=== PATIENT | male | born 1985 | race Caucasian/White ===

== ENCOUNTER 2022-03-22 13:41 | Inpatient (IN) | payer BC ==
[2022-03-22 15:00] VITALS: BMI 20.8
[2022-03-22] MEDS ORDERED: P-EPHED 60MG/TRIPROLIDI 2.5MG TABLET PO PRN (18:56)
[2022-03-22] MEDS ORDERED: MAG HYDROX/AL HYDROX/SIMETH 30 ML UNIT-DOSE CUP PO PRN (18:56)
[2022-03-22] MEDS ORDERED: MAGNESIUM CITRATE 300 ML BOTTLE PO PRN (18:56)
[2022-03-22] MEDS ORDERED: LOPERAMIDE HCL 2 MG CAPSULE PO PRN (18:56)
[2022-03-22] MEDS ORDERED: guaiFENesin 200 MG/10 ML 10 ML UNIT-DOSE CUPS PO PRN (18:56)
[2022-03-22] MEDS ORDERED: MAGNESIUM HYDROX 2400MG/30ML ORAL SUSPENSION 30 ML CUP PO PRN (18:56)
[2022-03-22] MEDS ORDERED: diazePAM 5 MG TABLET PO PRN (19:00)
[2022-03-23] MEDS ORDERED: TUBERCULIN PPD 5 TU/0.1ML VIAL ID ONE (00:59)
[2022-03-23] MEDS: THIAMINE HCL 100 MG TABLET (FP) PO SCH ×2 (01:04→21:10)
[2022-03-23] MEDS: hydrOXYzine PAMOATE 25 MG CAPSULE (FP) PO SCH ×6 (01:04→21:10)
[2022-03-23] MEDS: MELATONIN 5 MG TABLETS PO SCH ×2 (01:05→21:10)
[2022-03-23] MEDS: BUPRENORPHINE/NALOXONE 4 MG/1 MG FILM PACKET SL SCH ×4 (01:05→21:10)
[2022-03-23] MEDS: PRENATAL VITAMINS W/ FOLIC ACID TABLET (FP) PO SCH (10:59)
[2022-03-23 11:02] LABS: HEMATOCRIT 31.9 % (35.4-49); HEMOGLOBIN 11.2 GM/dL (11.7-16.9); MCHC 35.1 g/dl (32.0-35.9); MEAN CELL VOLUME 88.3 fl (80-96); MEAN PLT VOLUME 8.6 fl (7.5-11.1); PLATELET COUNT 206 10^3/uL (134-434); RBC 3.61 M/mm3 (4.00-5.60); RDW 12.9 % (11.9-15.9); WHITE BLOOD COUNT 4.5 K/mm3 (4.0-10.0)
[2022-03-23 11:22] LABS: ALBUMIN 3.2 g/dl (3.4-5.0)
[2022-03-23 11:23] LABS: CALCIUM 8.5 mg/dL (8.5-10.1)
[2022-03-23 11:23] LABS: PH,URINE 5.5 (5.0-8.0); URINE APPEARANCE TURBID; URINE BILIRUBIN NEGATIVE (NEGATIVE); URINE COLOR YELLOW; URINE GLUCOSE (UA) NEGATIVE (NEGATIVE); URINE KETONE NEGATIVE (NEGATIVE); URINE LEUK ESTERASE NEGATIVE (NEGATIVE); URINE NITRITE NEGATIVE (NEGATIVE); URINE PROTEIN NEGATIVE (NEGATIVE); URINE UROBILINOGEN 0.2 mg/dL (0.2-1.0)
[2022-03-23 11:24] LABS: BLOOD UREA NITROGEN 14.6 mg/dL (7-18)
[2022-03-23 11:25] LABS: CREATININE 0.9 mg/dL (0.55-1.3)
[2022-03-23 11:27] LABS: BILIRUBIN,TOTAL 0.5 mg/dL (0.2-1); TOT PROT 5.8 g/dl (6.4-8.2)
[2022-03-23 11:34] LABS: SYPHILIS W/ RPR CONF NON-REACTIVE (NONREACTIVE)
[2022-03-23 12:06] LABS: HIV INTERPRETATION NEGATIVE (NEGATIVE)
[2022-03-23] MEDS ORDERED: cloNIDine HCL 0.1 MG TABLET PO PRN ×2 (12:39→13:11)
[2022-03-23] MEDS ORDERED: BUPRENORPHINE/NALOXONE 8 MG/2 MG FILM PACKET SL SCH (14:00)
[2022-03-23] MEDS: LORazepam 2 MG TABLET PO SCH ×2 (14:59→21:10)
[2022-03-24] MEDS: hydrOXYzine PAMOATE 25 MG CAPSULE (FP) PO SCH (06:27)
[2022-03-24] MEDS: LORazepam 2 MG TABLET PO SCH (06:27)
[2022-03-24] MEDS: BUPRENORPHINE/NALOXONE 4 MG/1 MG FILM PACKET SL SCH (07:35)
[2022-03-24] MEDS ORDERED: cloNIDine HCL 0.1 MG TABLET PO PRN (09:53)
[2022-03-24] MEDS ORDERED: BUPRENORPHINE/NALOXONE 8 MG/2 MG FILM PACKET SL SCH (11:00)
[2022-03-24] MEDS: PRENATAL VITAMINS W/ FOLIC ACID TABLET (FP) PO SCH (11:41)
[2022-03-24] MEDS: hydrOXYzine PAMOATE 25 MG CAPSULE (FP) PO PRN ×2 (15:41→20:33)
[2022-03-24] MEDS: NICOTINE 10 MG CARTRIDGE (INHALER) IH PRN ×2 (15:41→21:23)
[2022-03-24] MEDS: BUPRENORPHINE/NALOXONE 8 MG/2 MG FILM PACKET SL SCH (20:34)
[2022-03-24] MEDS: IBUPROFEN 400 MG TABLET (FP) PO PRN (21:24)
[2022-03-24] MEDS: MELATONIN 5 MG TABLETS PO SCH (23:29)
[2022-03-24] MEDS: THIAMINE HCL 100 MG TABLET (FP) PO SCH (23:30)
[2022-03-25] MEDS: BUPRENORPHINE/NALOXONE 8 MG/2 MG FILM PACKET SL SCH ×2 (09:37→20:20)
[2022-03-25] MEDS: hydrOXYzine PAMOATE 25 MG CAPSULE (FP) PO PRN ×2 (09:38→20:21)
[2022-03-25] MEDS: NICOTINE 10 MG CARTRIDGE (INHALER) IH PRN ×2 (09:38→19:43)
[2022-03-25] MEDS: PRENATAL VITAMINS W/ FOLIC ACID TABLET (FP) PO SCH (09:38)
[2022-03-25] MEDS: MELATONIN 5 MG TABLETS PO SCH (21:30)
[2022-03-25] MEDS: THIAMINE HCL 100 MG TABLET (FP) PO SCH (21:31)
[2022-03-26] MEDS: hydrOXYzine PAMOATE 25 MG CAPSULE (FP) PO PRN ×5 (01:21→21:19)
[2022-03-26] MEDS: ACETAMINOPHEN 325 MG TABLET (FP) PO PRN (04:13)
[2022-03-26] MEDS: NICOTINE 10 MG CARTRIDGE (INHALER) IH PRN ×2 (06:00→16:35)
[2022-03-26] MEDS: BUPRENORPHINE/NALOXONE 8 MG/2 MG FILM PACKET SL SCH ×2 (09:42→21:10)
[2022-03-26] MEDS: PRENATAL VITAMINS W/ FOLIC ACID TABLET (FP) PO SCH (09:52)
[2022-03-26] MEDS: MELATONIN 5 MG TABLETS PO SCH (21:11)
[2022-03-26] MEDS: THIAMINE HCL 100 MG TABLET (FP) PO SCH (21:11)
[2022-03-27] MEDS: hydrOXYzine PAMOATE 25 MG CAPSULE (FP) PO PRN ×3 (06:40→21:01)
[2022-03-27] MEDS: NICOTINE 10 MG CARTRIDGE (INHALER) IH PRN ×3 (06:41→21:02)
[2022-03-27] MEDS ORDERED: cloNIDine HCL 0.1 MG TABLET PO ONE (09:00)
[2022-03-27] MEDS: PRENATAL VITAMINS W/ FOLIC ACID TABLET (FP) PO SCH (09:32)
[2022-03-27] MEDS: BUPRENORPHINE/NALOXONE 8 MG/2 MG FILM PACKET SL SCH ×2 (09:32→21:01)
[2022-03-27] MEDS: cloNIDine HCL 0.1 MG TABLET PO PRN (21:01)
[2022-03-27] MEDS: MELATONIN 5 MG TABLETS PO SCH (21:02)
[2022-03-27] MEDS: THIAMINE HCL 100 MG TABLET (FP) PO SCH (21:02)
[2022-03-28] MEDS: PRENATAL VITAMINS W/ FOLIC ACID TABLET (FP) PO SCH (09:28)
[2022-03-28] MEDS: BUPRENORPHINE/NALOXONE 8 MG/2 MG FILM PACKET SL SCH ×2 (09:28→21:07)
[2022-03-28] MEDS: NICOTINE 10 MG CARTRIDGE (INHALER) IH PRN ×2 (09:28→18:15)
[2022-03-28] MEDS: cloNIDine HCL 0.1 MG TABLET PO PRN ×2 (09:30→21:06)
[2022-03-28] MEDS: hydrOXYzine PAMOATE 25 MG CAPSULE (FP) PO PRN ×3 (09:30→21:07)
[2022-03-28] MEDS: MELATONIN 5 MG TABLETS PO SCH (21:06)
[2022-03-28] MEDS: THIAMINE HCL 100 MG TABLET (FP) PO SCH (21:06)
[2022-03-29] MEDS: hydrOXYzine PAMOATE 25 MG CAPSULE (FP) PO PRN ×5 (06:19→20:53)
[2022-03-29] MEDS: NICOTINE 10 MG CARTRIDGE (INHALER) IH PRN ×3 (07:57→20:54)
[2022-03-29] MEDS: PRENATAL VITAMINS W/ FOLIC ACID TABLET (FP) PO SCH (10:28)
[2022-03-29] MEDS: BUPRENORPHINE/NALOXONE 8 MG/2 MG FILM PACKET SL SCH ×2 (10:28→20:52)
[2022-03-29] MEDS: cloNIDine HCL 0.1 MG TABLET PO PRN ×2 (10:28→20:52)
[2022-03-29] MEDS: ACETAMINOPHEN 325 MG TABLET (FP) PO PRN (17:18)
[2022-03-29] MEDS: MELATONIN 5 MG TABLETS PO SCH (21:32)
[2022-03-29] MEDS: THIAMINE HCL 100 MG TABLET (FP) PO SCH (21:32)
[2022-03-30] MEDS: hydrOXYzine PAMOATE 25 MG CAPSULE (FP) PO PRN ×3 (05:57→11:08)
[2022-03-30] MEDS: NICOTINE 10 MG CARTRIDGE (INHALER) IH PRN ×4 (05:57→19:38)
[2022-03-30] MEDS: cloNIDine HCL 0.1 MG TABLET PO PRN ×2 (09:45→21:06)
[2022-03-30] MEDS: BUPRENORPHINE/NALOXONE 8 MG/2 MG FILM PACKET SL SCH ×2 (09:45→21:07)
[2022-03-30] MEDS: PRENATAL VITAMINS W/ FOLIC ACID TABLET (FP) PO SCH (09:45)
[2022-03-30] MEDS: IBUPROFEN 400 MG TABLET (FP) PO PRN ×2 (11:07→21:06)
[2022-03-30] MEDS: hydrOXYzine PAMOATE 50 MG CAPSULE (FP) PO PRN ×2 (15:07→19:38)
[2022-03-30] MEDS: MELATONIN 5 MG TABLETS PO SCH (21:05)
[2022-03-30] MEDS: THIAMINE HCL 100 MG TABLET (FP) PO SCH (21:05)
[2022-03-30] MEDS ORDERED: hydrOXYzine PAMOATE 50 MG CAPSULE (FP) PO PRN (22:00)
[2022-03-31] MEDS: hydrOXYzine PAMOATE 50 MG CAPSULE (FP) PO PRN ×3 (06:20→18:02)
[2022-03-31] MEDS: NICOTINE 10 MG CARTRIDGE (INHALER) IH PRN ×3 (06:21→18:02)
[2022-03-31] MEDS: cloNIDine HCL 0.1 MG TABLET PO PRN ×2 (09:49→21:15)
[2022-03-31] MEDS: PRENATAL VITAMINS W/ FOLIC ACID TABLET (FP) PO SCH (09:49)
[2022-03-31] MEDS: BUPRENORPHINE/NALOXONE 8 MG/2 MG FILM PACKET SL SCH ×2 (09:49→21:15)
[2022-03-31] MEDS: MELATONIN 5 MG TABLETS PO SCH (21:15)
[2022-03-31] MEDS: THIAMINE HCL 100 MG TABLET (FP) PO SCH (21:15)
[2022-04-01] MEDS: hydrOXYzine PAMOATE 50 MG CAPSULE (FP) PO PRN ×4 (06:39→18:31)
[2022-04-01] MEDS: NICOTINE 10 MG CARTRIDGE (INHALER) IH PRN ×3 (06:40→18:27)
[2022-04-01] MEDS: PRENATAL VITAMINS W/ FOLIC ACID TABLET (FP) PO SCH (09:43)
[2022-04-01] MEDS: BUPRENORPHINE/NALOXONE 8 MG/2 MG FILM PACKET SL SCH ×2 (09:43→21:35)
[2022-04-01] MEDS: cloNIDine HCL 0.1 MG TABLET PO PRN ×2 (09:44→21:34)
[2022-04-01] MEDS: MELATONIN 5 MG TABLETS PO SCH (21:34)
[2022-04-01] MEDS: THIAMINE HCL 100 MG TABLET (FP) PO SCH (21:34)
[2022-04-02] MEDS: hydrOXYzine PAMOATE 50 MG CAPSULE (FP) PO PRN ×5 (04:33→21:54)
[2022-04-02] MEDS: NICOTINE 10 MG CARTRIDGE (INHALER) IH PRN ×4 (08:43→21:54)
[2022-04-02] MEDS: PRENATAL VITAMINS W/ FOLIC ACID TABLET (FP) PO SCH (10:32)
[2022-04-02] MEDS: BUPRENORPHINE/NALOXONE 8 MG/2 MG FILM PACKET SL SCH ×2 (10:32→20:04)
[2022-04-02] MEDS: cloNIDine HCL 0.1 MG TABLET PO PRN ×2 (10:34→21:05)
[2022-04-02] MEDS: THIAMINE HCL 100 MG TABLET (FP) PO SCH (21:04)
[2022-04-02] MEDS: MELATONIN 5 MG TABLETS PO SCH (21:04)
[2022-04-03] MEDS: hydrOXYzine PAMOATE 50 MG CAPSULE (FP) PO PRN ×4 (06:36→22:42)
[2022-04-03] MEDS: PRENATAL VITAMINS W/ FOLIC ACID TABLET (FP) PO SCH (10:05)
[2022-04-03] MEDS: BUPRENORPHINE/NALOXONE 8 MG/2 MG FILM PACKET SL SCH ×2 (10:05→22:05)
[2022-04-03] MEDS: cloNIDine HCL 0.1 MG TABLET PO PRN ×2 (10:06→22:05)
[2022-04-03] MEDS: NICOTINE 10 MG CARTRIDGE (INHALER) IH PRN (18:05)
[2022-04-03] MEDS: THIAMINE HCL 100 MG TABLET (FP) PO SCH (22:05)
[2022-04-03] MEDS: MELATONIN 5 MG TABLETS PO SCH (22:05)
[2022-04-04 06:45] VITALS: TEMP 97.7
[2022-04-04] MEDS: NICOTINE 10 MG CARTRIDGE (INHALER) IH PRN ×2 (06:46→11:05)
[2022-04-04] MEDS: hydrOXYzine PAMOATE 50 MG CAPSULE (FP) PO PRN ×2 (06:46→16:44)
[2022-04-04] MEDS: PRENATAL VITAMINS W/ FOLIC ACID TABLET (FP) PO SCH (09:58)
[2022-04-04] MEDS: BUPRENORPHINE/NALOXONE 8 MG/2 MG FILM PACKET SL SCH ×2 (09:58→21:09)
[2022-04-04] MEDS: cloNIDine HCL 0.1 MG TABLET PO PRN ×2 (09:58→21:09)
[2022-04-04] MEDS: THIAMINE HCL 100 MG TABLET (FP) PO SCH (21:08)
[2022-04-04] MEDS: MELATONIN 5 MG TABLETS PO SCH (21:08)
[2022-04-05] MEDS: BUPRENORPHINE/NALOXONE 8 MG/2 MG FILM PACKET SL SCH (09:41)
[2022-04-05] MEDS: PRENATAL VITAMINS W/ FOLIC ACID TABLET (FP) PO SCH (09:42)
[2022-04-05] MEDS: cloNIDine HCL 0.1 MG TABLET PO PRN (09:43)
[2022-04-05 10:18] VITALS: BP 105/64; PULSE 65
[2022-04-05] MEDS: hydrOXYzine PAMOATE 50 MG CAPSULE (FP) PO PRN (10:24)
== END 2022-04-05 10:27 | disposition home or self-care (01) | DRG 772 ==
LOC: YASAS 13:41 → Y3W 23:36
PROVIDERS: ADMIT Allergy & Immunology; ATTEND Psychiatry & Neurology Pain Medicine
PROC: HZ42ZZZ Group Counseling for Substance Abuse Treatment, Cognitive-Behavioral (ICD-10-PCS; principal; 2022-03-22)
DX: F10.20 Alcohol dependence, uncomplicated (principal); F11.20 Opioid dependence, uncomplicated; F13.20 Sedative, hypnotic or anxiolytic dependence, uncomplicated; F14.20 Cocaine dependence, uncomplicated; F19.280 Other psychoactive substance dependence with psychoactive substance-induced anxiety disorder; F19.24 Other psychoactive substance dependence with psychoactive substance-induced mood disorder; F41.9 Anxiety disorder, unspecified; I10 Essential (primary) hypertension; Z56.0 Unemployment, unspecified
CPT/HCPCS: 36415; 80053; 81003; 82962; 85027; 86780; 86803; 87389; C9803-CS; J0735; U0003; U0005

== ENCOUNTER 2022-06-11 09:36 | Inpatient (IN) | payer BC ==
[2022-06-11 11:09] VITALS: BMI 21.2
[2022-06-11] MEDS ORDERED: IBUPROFEN 600 MG TABLET (FP) PO PRN (11:41)
[2022-06-11] MEDS ORDERED: MAGNESIUM CITRATE 300 ML BOTTLE PO PRN (11:41)
[2022-06-11] MEDS ORDERED: MAG HYDROX/AL HYDROX/SIMETH 30 ML UNIT-DOSE CUP PO PRN (11:41)
[2022-06-11] MEDS ORDERED: DICYCLOMINE HCL 10 MG CAPSULE PO PRN (11:41)
[2022-06-11] MEDS ORDERED: MAGNESIUM HYDROX 2400MG/30ML ORAL SUSPENSION 30 ML CUP PO PRN (11:41)
[2022-06-11] MEDS ORDERED: BENZOCAINE/MENTHOL (CHLORASEPTIC ) LOZENGE MM PRN (11:41)
[2022-06-11] MEDS ORDERED: BISMUTH SUBSALICYLATE 524 MG/30 ML PO PRN (11:41)
[2022-06-11] MEDS ORDERED: ACETAMINOPHEN 325 MG TABLET (FP) PO PRN ×2 (11:41)
[2022-06-11] MEDS ORDERED: ONDANSETRON *ODT* 4 MG TABLET SL PRN (11:41)
[2022-06-11] MEDS ORDERED: IBUPROFEN 400 MG TABLET (FP) PO PRN (11:41)
[2022-06-11] MEDS ORDERED: LOPERAMIDE HCL 2 MG CAPSULE PO PRN (11:41)
[2022-06-11] MEDS: hydrOXYzine PAMOATE 25 MG CAPSULE (FP) PO SCH ×3 (13:03→22:38)
[2022-06-11 17:56] VITALS: RESP 18
[2022-06-11] MEDS: METHOCARBAMOL 500 MG TABLET PO PRN (18:11)
[2022-06-11] MEDS ORDERED: THIAMINE HCL 100 MG TABLET (FP) PO SCH (22:00)
[2022-06-11] MEDS ORDERED: MELATONIN 5 MG TABLETS PO SCH (22:00)
[2022-06-12] MEDS: METHOCARBAMOL 500 MG TABLET PO PRN ×2 (05:20→11:29)
[2022-06-12] MEDS: hydrOXYzine PAMOATE 25 MG CAPSULE (FP) PO SCH ×3 (05:20→14:13)
[2022-06-12] MEDS ORDERED: PRENATAL VITAMINS W/ FOLIC ACID TABLET (FP) PO SCH (10:00)
[2022-06-12] MEDS: diazePAM 5 MG TABLET PO PRN ×2 (10:10→14:13)
[2022-06-12] MEDS ORDERED: BUPRENORPHINE HCL 150 MCG, BUPRENORPHINE HCL 75 MCG BC ONE (10:59)
[2022-06-12] MEDS ORDERED: cloNIDine HCL 0.1 MG TABLET PO ONE (10:59)
[2022-06-12] MEDS ORDERED: BUPRENORPHINE HCL 150 MCG, BUPRENORPHINE HCL 75 MCG BC PRN (10:59)
[2022-06-12 11:58] LABS: HEMATOCRIT 38.5 % (35.4-49); HEMOGLOBIN 12.9 GM/dL (11.7-16.9); MCH 30.3 pg (25.7-33.7); MCHC 33.5 g/dl (32.0-35.9); MEAN CELL VOLUME 90.6 fl (80-96); MEAN PLT VOLUME 8.6 fl (7.5-11.1); PLATELET COUNT 190 10^3/uL (134-434); RBC 4.24 M/mm3 (4.00-5.60); WHITE BLOOD COUNT 5.4 K/mm3 (4.0-10.0)
[2022-06-12 12:15] LABS: CALCIUM 8.6 mg/dL (8.5-10.1)
[2022-06-12 12:16] LABS: ALBUMIN 3.2 g/dl (3.4-5.0); BLOOD UREA NITROGEN 15.6 mg/dL (7-18)
[2022-06-12 12:18] LABS: BILIRUBIN,TOTAL 0.4 mg/dL (0.2-1); CREATININE 0.8 mg/dL (0.55-1.3)
[2022-06-12 12:19] LABS: TOT PROT 5.7 g/dl (6.4-8.2)
[2022-06-12 13:13] VITALS: BP 123/77; PULSE 78; TEMP 97.5
[2022-06-12] MEDS ORDERED: cloNIDine HCL 0.1 MG TABLET PO PRN (15:00)
[2022-06-13] MEDS ORDERED: BUPRENORPHINE HCL 150 MCG, BUPRENORPHINE HCL 75 MCG BC PRN
[2022-06-13] MEDS ORDERED: BUPRENORPHINE HCL 150 MCG, BUPRENORPHINE HCL 75 MCG BC SCH (06:00)
[2022-06-14] MEDS ORDERED: BUPRENORPHINE HCL 450 MCG FILM BC SCH (06:00)
[2022-06-15] MEDS ORDERED: BUPRENORPHINE/NALOXONE 4 MG/1 MG FILM PACKET SL SCH (06:00)
[2022-06-16] MEDS ORDERED: BUPRENORPHINE/NALOXONE 8 MG/2 MG FILM PACKET SL ONE (06:00)
== END 2022-06-12 15:17 | disposition left against medical advice (07) | DRG 770 ==
LOC: YASAS 09:36 → Y6N 12:09 → UNDOADMIN 12:09
PROVIDERS: ADMIT Allergy & Immunology; ATTEND Surgery
PROC: HZ2ZZZZ Detoxification Services for Substance Abuse Treatment (ICD-10-PCS; principal; 2022-06-11)
DX: F11.23 Opioid dependence with withdrawal (principal); F13.20 Sedative, hypnotic or anxiolytic dependence, uncomplicated; F14.20 Cocaine dependence, uncomplicated; F10.20 Alcohol dependence, uncomplicated; F19.280 Other psychoactive substance dependence with psychoactive substance-induced anxiety disorder; F19.282 Other psychoactive substance dependence with psychoactive substance-induced sleep disorder; F19.24 Other psychoactive substance dependence with psychoactive substance-induced mood disorder; I10 Essential (primary) hypertension
CPT/HCPCS: 36415; 80053; 85027; 86780; C9803-CS; J0735; U0003; U0005

== ENCOUNTER 2022-07-07 17:46 | Inpatient (IN) | payer BC ==
[2022-07-07 22:12] VITALS: BMI 21.1
[2022-07-07] MEDS ORDERED: NALOXONE HCL (KLOXXADO) 8 MG SPRAY NS PRN (23:21)
[2022-07-07] MEDS ORDERED: LOPERAMIDE HCL 2 MG CAPSULE PO PRN (23:21)
[2022-07-07] MEDS ORDERED: DICYCLOMINE HCL 10 MG CAPSULE PO PRN (23:21)
[2022-07-07] MEDS ORDERED: P-EPHED 60MG/TRIPROLIDI 2.5MG TABLET PO PRN (23:21)
[2022-07-07] MEDS ORDERED: ACETAMINOPHEN 325 MG TABLET (FP) PO PRN (23:21)
[2022-07-07] MEDS ORDERED: BISMUTH SUBSALICYLATE 524 MG/30 ML PO PRN (23:21)
[2022-07-07] MEDS ORDERED: guaiFENesin 200 MG/10 ML 10 ML UNIT-DOSE CUPS PO PRN (23:21)
[2022-07-07] MEDS ORDERED: IBUPROFEN 600 MG TABLET (FP) PO PRN (23:21)
[2022-07-07] MEDS ORDERED: MAG HYDROX/AL HYDROX/SIMETH 30 ML UNIT-DOSE CUP PO PRN (23:21)
[2022-07-07] MEDS ORDERED: MAGNESIUM HYDROX 2400MG/30ML ORAL SUSPENSION 30 ML CUP PO PRN (23:21)
[2022-07-07] MEDS ORDERED: NALOXONE HCL 0.4 MG/ML VIAL IM PRN (23:21)
[2022-07-07] MEDS ORDERED: ONDANSETRON *ODT* 4 MG TABLET SL PRN (23:21)
[2022-07-07] MEDS ORDERED: BENZOCAINE/MENTHOL (CHLORASEPTIC ) LOZENGE MM PRN (23:21)
[2022-07-07] MEDS ORDERED: IBUPROFEN 400 MG TABLET (FP) PO PRN (23:21)
[2022-07-07] MEDS ORDERED: MAGNESIUM CITRATE 300 ML BOTTLE PO PRN (23:21)
[2022-07-08] MEDS: PRENATAL VITAMINS W/ FOLIC ACID TABLET (FP) PO SCH (12:58)
[2022-07-08] MEDS ORDERED: methaDONE HCL 10 MG TABLET (FOR DETOX USE ONLY) PO ONE (13:29)
[2022-07-08] MEDS ORDERED: diazePAM 5 MG TABLET PO PRN (13:30)
[2022-07-08] MEDS: diazePAM 5 MG TABLET PO PRN ×3 (14:43→23:01)
[2022-07-08] MEDS: NICOTINE 10 MG CARTRIDGE (INHALER) IH PRN ×3 (15:17→22:34)
[2022-07-08] MEDS: THIAMINE HCL 100 MG TABLET (FP) PO SCH (22:34)
[2022-07-08] MEDS: MELATONIN 5 MG TABLETS PO SCH (22:34)
[2022-07-09] MEDS: cloNIDine HCL 0.1 MG TABLET PO PRN ×2 (07:13→22:17)
[2022-07-09] MEDS: diazePAM 5 MG TABLET PO PRN ×4 (07:13→22:15)
[2022-07-09] MEDS: PRENATAL VITAMINS W/ FOLIC ACID TABLET (FP) PO SCH (10:54)
[2022-07-09 10:58] LABS: HEMATOCRIT 41.6 % (35.4-49); HEMOGLOBIN 14.1 GM/dL (11.7-16.9); MCH 30.1 pg (25.7-33.7); MCHC 33.9 g/dl (32.0-35.9); MEAN CELL VOLUME 88.8 fl (80-96); MEAN PLT VOLUME 8.6 fl (7.5-11.1); PLATELET COUNT 272 10^3/uL (134-434); RBC 4.68 M/mm3 (4.00-5.60); RDW 12.9 % (11.9-15.9); WHITE BLOOD COUNT 6.3 K/mm3 (4.0-10.0)
[2022-07-09 11:09] LABS: ALBUMIN 3.9 g/dl (3.4-5.0); BLOOD UREA NITROGEN 11.7 mg/dL (7-18); CALCIUM 9.3 mg/dL (8.5-10.1)
[2022-07-09 11:12] LABS: CREATININE 0.9 mg/dL (0.55-1.3)
[2022-07-09 11:14] LABS: BILIRUBIN,TOTAL 0.8 mg/dL (0.2-1); TOT PROT 7.1 g/dl (6.4-8.2)
[2022-07-09] MEDS: NICOTINE 10 MG CARTRIDGE (INHALER) IH PRN ×2 (15:36→22:18)
[2022-07-09] MEDS: THIAMINE HCL 100 MG TABLET (FP) PO SCH (22:15)
[2022-07-09] MEDS: MELATONIN 5 MG TABLETS PO SCH (22:15)
[2022-07-10] MEDS: ACETAMINOPHEN 325 MG TABLET (FP) PO PRN (00:56)
[2022-07-10] MEDS: diazePAM 5 MG TABLET PO PRN ×5 (02:30→22:28)
[2022-07-10] MEDS ORDERED: methaDONE HCL 10 MG TABLET (FOR DETOX USE ONLY) PO ONE (10:00)
[2022-07-10] MEDS: hydrOXYzine PAMOATE 25 MG CAPSULE (FP) PO PRN (10:11)
[2022-07-10] MEDS: METHOCARBAMOL 500 MG TABLET PO PRN (10:11)
[2022-07-10] MEDS: PRENATAL VITAMINS W/ FOLIC ACID TABLET (FP) PO SCH (10:12)
[2022-07-10] MEDS: cloNIDine HCL 0.1 MG TABLET PO PRN ×2 (10:14→22:28)
[2022-07-10] MEDS: NICOTINE 10 MG CARTRIDGE (INHALER) IH PRN (16:17)
[2022-07-10 17:22] LABS: URINE APPEARANCE CLEAR; URINE BILIRUBIN NEGATIVE (NEGATIVE); URINE COLOR YELLOW; URINE GLUCOSE (UA) NEGATIVE (NEGATIVE); URINE KETONE NEGATIVE (NEGATIVE); URINE LEUK ESTERASE NEGATIVE (NEGATIVE); URINE NITRITE NEGATIVE (NEGATIVE); URINE PROTEIN NEGATIVE (NEGATIVE); URINE UROBILINOGEN 0.2 mg/dL (0.2-1.0)
[2022-07-10] MEDS: MELATONIN 5 MG TABLETS PO SCH (22:28)
[2022-07-10] MEDS: THIAMINE HCL 100 MG TABLET (FP) PO SCH (22:28)
[2022-07-11] MEDS: diazePAM 5 MG TABLET PO PRN ×5 (06:18→22:28)
[2022-07-11] MEDS: hydrOXYzine PAMOATE 25 MG CAPSULE (FP) PO PRN ×3 (06:19→18:32)
[2022-07-11] MEDS: METHOCARBAMOL 500 MG TABLET PO PRN ×2 (10:24→22:28)
[2022-07-11] MEDS: PRENATAL VITAMINS W/ FOLIC ACID TABLET (FP) PO SCH (10:24)
[2022-07-11] MEDS: NICOTINE 10 MG CARTRIDGE (INHALER) IH PRN ×3 (10:29→22:29)
[2022-07-11] MEDS: THIAMINE HCL 100 MG TABLET (FP) PO SCH (22:28)
[2022-07-11] MEDS: MELATONIN 5 MG TABLETS PO SCH (22:28)
[2022-07-12] MEDS: diazePAM 5 MG TABLET PO PRN ×4 (06:36→22:11)
[2022-07-12] MEDS: hydrOXYzine PAMOATE 25 MG CAPSULE (FP) PO PRN ×4 (06:36→22:11)
[2022-07-12] MEDS: ACETAMINOPHEN 325 MG TABLET (FP) PO PRN ×2 (07:31→17:47)
[2022-07-12] MEDS ORDERED: methaDONE HCL 10 MG TABLET (FOR DETOX USE ONLY) PO ONE (10:00)
[2022-07-12] MEDS: METHOCARBAMOL 500 MG TABLET PO PRN ×2 (11:14→22:12)
[2022-07-12] MEDS: PRENATAL VITAMINS W/ FOLIC ACID TABLET (FP) PO SCH (11:14)
[2022-07-12] MEDS: MELATONIN 5 MG TABLETS PO SCH (22:08)
[2022-07-12] MEDS: THIAMINE HCL 100 MG TABLET (FP) PO SCH (22:08)
[2022-07-13 05:56] VITALS: TEMP 97.1
[2022-07-13 09:02] VITALS: BP 155/97; PULSE 110; RESP 18
[2022-07-13] MEDS: PRENATAL VITAMINS W/ FOLIC ACID TABLET (FP) PO SCH (09:34)
== END 2022-07-13 09:44 | disposition home or self-care (01) | DRG 773 ==
LOC: YASAS 17:46 → Y3N 07-08 10:59
PROVIDERS: ADMIT Allergy & Immunology; ATTEND Surgery
PROC: HZ2ZZZZ Detoxification Services for Substance Abuse Treatment (ICD-10-PCS; principal; 2022-07-08)
DX: F11.23 Opioid dependence with withdrawal (principal); F13.20 Sedative, hypnotic or anxiolytic dependence, uncomplicated; F14.20 Cocaine dependence, uncomplicated; F32.A Depression, unspecified; I10 Essential (primary) hypertension; R40.0 Somnolence; Z91.81 History of falling
CPT/HCPCS: 36415; 80053; 81003; 85027; 86780; C9803-CS; U0003; U0005

== ENCOUNTER 2022-09-11 08:58 | Inpatient (IN) | payer BC ==
[2022-09-11 10:47] VITALS: BMI 23.0
[2022-09-11] MEDS ORDERED: LOPERAMIDE HCL 2 MG CAPSULE PO PRN (11:21)
[2022-09-11] MEDS ORDERED: ACETAMINOPHEN 325 MG TABLET (FP) PO PRN ×2 (11:21)
[2022-09-11] MEDS ORDERED: NALOXONE HCL (KLOXXADO) 8 MG SPRAY NS PRN (11:21)
[2022-09-11] MEDS ORDERED: NICOTINE POLACRILEX 4 MG GUM BUC PRN (11:21)
[2022-09-11] MEDS ORDERED: POLYETHYLENE GLYCOL (HEALTHYLAX) 3350 17 GM PACKET PO PRN (11:21)
[2022-09-11] MEDS ORDERED: IBUPROFEN 400 MG TABLET (FP) PO PRN (11:21)
[2022-09-11] MEDS ORDERED: hydrOXYzine PAMOATE 25 MG CAPSULE (FP) PO PRN (11:21)
[2022-09-11] MEDS ORDERED: BENZOCAINE/MENTHOL (CHLORASEPTIC ) LOZENGE MM PRN (11:21)
[2022-09-11] MEDS ORDERED: MAGNESIUM HYDROX 2400MG/30ML ORAL SUSPENSION 30 ML CUP PO PRN (11:21)
[2022-09-11] MEDS ORDERED: BISMUTH SUBSALICYLATE 262 MG/15 ML BTL PO PRN (11:21)
[2022-09-11] MEDS ORDERED: MAG HYDROX/AL HYDROX/SIMETH 30 ML UNIT-DOSE CUP PO PRN (11:21)
[2022-09-11] MEDS ORDERED: DICYCLOMINE HCL 10 MG CAPSULE PO PRN (11:21)
[2022-09-11] MEDS ORDERED: methaDONE HCL 10 MG TABLET (FOR DETOX USE ONLY) PO ONE (11:21)
[2022-09-11] MEDS ORDERED: ONDANSETRON *ODT* 4 MG TABLET SL PRN (11:21)
[2022-09-11] MEDS: NICOTINE 10 MG CARTRIDGE (INHALER) IH PRN ×2 (12:11→22:14)
[2022-09-11] MEDS: NICOTINE 21 MG/24 HOURS TOPICAL PATCH TD SCH (14:30)
[2022-09-11] MEDS: LORazepam 1 MG TABLET PO PRN (14:30)
[2022-09-11 14:49] LABS: HEMATOCRIT 33.4 % (35.4-49); HEMOGLOBIN 11.2 GM/dL (11.7-16.9); MCH 30.3 pg (25.7-33.7); MCHC 33.6 g/dl (32.0-35.9); MEAN CELL VOLUME 90.1 fl (80-96); MEAN PLT VOLUME 8.2 fl (7.5-11.1); PLATELET COUNT 224 10^3/uL (134-434); RBC 3.71 M/mm3 (4.00-5.60); RDW 13.2 % (11.9-15.9); WHITE BLOOD COUNT 5.8 K/mm3 (4.0-10.0)
[2022-09-11 15:59] LABS: ALBUMIN 3.2 g/dl (3.4-5.0); CALCIUM 8.6 mg/dL (8.5-10.1)
[2022-09-11 16:02] LABS: BILIRUBIN,TOTAL 0.4 mg/dL (0.2-1); CREATININE 0.8 mg/dL (0.55-1.3)
[2022-09-11] MEDS: LORazepam 2 MG TABLET PO SCH ×2 (17:39→22:14)
[2022-09-11] MEDS: THIAMINE HCL 100 MG TABLET (FP) PO SCH (22:14)
[2022-09-11] MEDS: MELATONIN 5 MG TABLETS PO SCH (22:14)
[2022-09-12] MEDS: LORazepam 2 MG TABLET PO SCH ×4 (05:52→22:37)
[2022-09-12] MEDS: PRENATAL VITAMINS W/ FOLIC ACID TABLET (FP) PO SCH (10:16)
[2022-09-12] MEDS: NICOTINE 21 MG/24 HOURS TOPICAL PATCH TD SCH (10:17)
[2022-09-12] MEDS: LORazepam 1 MG TABLET PO PRN (14:48)
[2022-09-12] MEDS: cloNIDine HCL 0.1 MG TABLET PO PRN (17:47)
[2022-09-12] MEDS: MELATONIN 5 MG TABLETS PO SCH (22:37)
[2022-09-12] MEDS: THIAMINE HCL 100 MG TABLET (FP) PO SCH (22:37)
[2022-09-12] MEDS: IBUPROFEN 600 MG TABLET (FP) PO PRN (22:39)
[2022-09-13] MEDS: LORazepam 1 MG TABLET PO SCH ×4 (05:26→22:21)
[2022-09-13] MEDS ORDERED: methaDONE HCL 10 MG TABLET (FOR DETOX USE ONLY) PO ONE (10:00)
[2022-09-13] MEDS: NICOTINE 21 MG/24 HOURS TOPICAL PATCH TD SCH (10:11)
[2022-09-13] MEDS: PRENATAL VITAMINS W/ FOLIC ACID TABLET (FP) PO SCH (10:12)
[2022-09-13] MEDS: METHOCARBAMOL 500 MG TABLET PO PRN ×2 (10:12→22:23)
[2022-09-13] MEDS: cloNIDine HCL 0.1 MG TABLET PO PRN ×2 (10:14→22:23)
[2022-09-13] MEDS: LORazepam 1 MG TABLET PO PRN (12:40)
[2022-09-13 21:43] VITALS: RESP 18; TEMP 98.7
[2022-09-13] MEDS: THIAMINE HCL 100 MG TABLET (FP) PO SCH (22:21)
[2022-09-13] MEDS: MELATONIN 5 MG TABLETS PO SCH (22:21)
[2022-09-14] MEDS ORDERED: LORazepam 0.5 MG TABLET PO PRN
[2022-09-14 06:03] VITALS: BP 113/75; PULSE 77
[2022-09-14] MEDS: LORazepam 0.5 MG TABLET PO SCH ×2 (06:05→10:32)
[2022-09-14] MEDS: IBUPROFEN 600 MG TABLET (FP) PO PRN (06:06)
[2022-09-14] MEDS: NICOTINE 21 MG/24 HOURS TOPICAL PATCH TD SCH (10:32)
[2022-09-14] MEDS: PRENATAL VITAMINS W/ FOLIC ACID TABLET (FP) PO SCH (10:32)
[2022-09-15] MEDS ORDERED: LORazepam 0.5 MG TABLET PO ONE (05:00)
[2022-09-15] MEDS ORDERED: methaDONE HCL 10 MG TABLET (FOR DETOX USE ONLY) PO ONE (10:00)
== END 2022-09-14 09:16 | disposition left against medical advice (07) | DRG 770 ==
LOC: YASAS 08:58 → Y3N 11:44
PROVIDERS: ADMIT Allergy & Immunology; ATTEND Psychiatry & Neurology Psychiatry
PROC: HZ2ZZZZ Detoxification Services for Substance Abuse Treatment (ICD-10-PCS; principal; 2022-09-11)
DX: F11.23 Opioid dependence with withdrawal (principal); F13.230 Sedative, hypnotic or anxiolytic dependence with withdrawal, uncomplicated; F10.230 Alcohol dependence with withdrawal, uncomplicated; F12.20 Cannabis dependence, uncomplicated; F17.210 Nicotine dependence, cigarettes, uncomplicated; F41.9 Anxiety disorder, unspecified; I10 Essential (primary) hypertension
CPT/HCPCS: 36415; 80053; 85027; 86780; C9803-CS; U0003; U0005

== ENCOUNTER 2022-10-18 22:22 | Emergency (ER) | payer BC ==
[2022-10-18 22:56] VITALS: BP 110/55; PULSE 82; RESP 17; TEMP 98.2; BMI 21.1
== END 2022-10-19 02:32 | disposition home or self-care (01) ==
LOC: JER 22:22
DX: S00.83XA Contusion of other part of head, initial encounter (principal); S00.81XA Abrasion of other part of head, initial encounter; W01.0XXA Fall on same level from slipping, tripping and stumbling without subsequent striking against object, initial encounter
CPT/HCPCS: 70450-TC; 72125-TC; 99284-25

== ENCOUNTER 2023-01-29 14:58 | Inpatient (IN) | payer BC ==
[2023-01-29 15:31] VITALS: TEMP 97.6; BMI 21.3
[2023-01-29] MEDS ORDERED: MELATONIN 5 MG TABLETS PO PRN (16:46)
[2023-01-29] MEDS ORDERED: guaiFENesin 600 MG TABLET.ER (FP) PO PRN (16:46)
[2023-01-29] MEDS ORDERED: ACETAMINOPHEN 325 MG TABLET (FP) PO PRN (16:46)
[2023-01-29] MEDS ORDERED: NALOXONE HCL (KLOXXADO) 8 MG SPRAY NS PRN (16:46)
[2023-01-29] MEDS ORDERED: NICOTINE POLACRILEX 2 MG GUM BUC PRN (16:46)
[2023-01-29] MEDS ORDERED: P-EPHED 60MG/TRIPROLIDI 2.5MG TABLET PO PRN (16:46)
[2023-01-29] MEDS ORDERED: MAGNESIUM HYDROX 2400MG/30ML ORAL SUSPENSION 30 ML CUP PO PRN (16:46)
[2023-01-29] MEDS ORDERED: NALOXONE HCL 0.4 MG/ML VIAL IM PRN (16:46)
[2023-01-29] MEDS ORDERED: POLYETHYLENE GLYCOL (HEALTHYLAX) 3350 17 GM PACKET PO PRN (16:46)
[2023-01-29] MEDS ORDERED: LOPERAMIDE HCL 2 MG CAPSULE PO PRN (16:46)
[2023-01-29] MEDS ORDERED: NICOTINE 10 MG CARTRIDGE (INHALER) IH PRN (16:46)
[2023-01-29] MEDS ORDERED: BENZOCAINE/MENTHOL (CHLORASEPTIC ) LOZENGE MM PRN (16:46)
[2023-01-29] MEDS ORDERED: IBUPROFEN 600 MG TABLET (FP) PO PRN (16:46)
[2023-01-29] MEDS ORDERED: BENZONATATE 200 MG CAPSULE PO PRN (16:46)
[2023-01-29] MEDS ORDERED: MAG HYDROX/AL HYDROX/SIMETH 30 ML UNIT-DOSE CUP PO PRN (16:46)
[2023-01-29] MEDS: NICOTINE 14 MG/24 HOURS TOPICAL PATCH TD SCH (19:00)
[2023-01-29 20:58] VITALS: BP 116/82; PULSE 81; RESP 18
[2023-01-29] MEDS: IBUPROFEN 400 MG TABLET (FP) PO PRN (21:20)
[2023-01-29] MEDS: hydrOXYzine PAMOATE 25 MG CAPSULE (FP) PO PRN (21:21)
[2023-01-29] MEDS ORDERED: THIAMINE HCL 100 MG TABLET (FP) PO SCH (22:00)
[2023-01-30] MEDS: IBUPROFEN 400 MG TABLET (FP) PO PRN (01:42)
[2023-01-30] MEDS: NICOTINE 14 MG/24 HOURS TOPICAL PATCH TD SCH (09:44)
[2023-01-30] MEDS ORDERED: PRENATAL VITAMINS W/ FOLIC ACID TABLET (FP) PO SCH (10:00)
[2023-01-30] MEDS ORDERED: NICOTINE 7 MG/24 HOURS TOPICAL PATCH TD SCH (10:00)
[2023-01-30 11:53] LABS: ALBUMIN 3.5 g/dl (3.4-5.0); CALCIUM 9.3 mg/dL (8.5-10.1)
[2023-01-30 11:57] LABS: CREATININE 0.8 mg/dL (0.55-1.3)
[2023-01-30 11:58] LABS: BILIRUBIN,TOTAL 0.7 mg/dL (0.2-1); TOT PROT 6.6 g/dl (6.4-8.2)
[2023-01-30 13:18] LABS: HEMATOCRIT 39.3 % (35.4-49); MCH 31.3 pg (25.7-33.7); MCHC 35.6 g/dl (32.0-35.9); MEAN PLT VOLUME 8.7 fl (7.5-11.1); PLATELET COUNT 215 10^3/uL (134-434); RBC 4.46 M/mm3 (4.00-5.60); RDW 12.9 % (11.9-15.9)
[2023-01-30] MEDS ORDERED: PRENATAL VITAMINS W/ FOLIC ACID TABLET (FP) PO PRN (15:51)
[2023-01-30] MEDS ORDERED: NICOTINE 14 MG/24 HOURS TOPICAL PATCH TD PRN (15:51)
[2023-01-30] MEDS: hydrOXYzine PAMOATE 25 MG CAPSULE (FP) PO PRN (16:35)
== END 2023-01-30 19:53 | disposition left against medical advice (07) | DRG 770 ==
LOC: YASAS 14:58 → Y3E 16:41
PROVIDERS: ADMIT Allergy & Immunology; ATTEND Psychiatry & Neurology Pain Medicine
PROC: HZ42ZZZ Group Counseling for Substance Abuse Treatment, Cognitive-Behavioral (ICD-10-PCS; principal; 2023-01-29)
DX: F11.20 Opioid dependence, uncomplicated (principal); F14.20 Cocaine dependence, uncomplicated; F13.20 Sedative, hypnotic or anxiolytic dependence, uncomplicated; F12.20 Cannabis dependence, uncomplicated; F17.210 Nicotine dependence, cigarettes, uncomplicated
CPT/HCPCS: 36415; 80053; 85027; 86780; C9803-CS; U0003; U0005

== ENCOUNTER 2023-03-07 13:13 | Inpatient (IN) | payer BC ==
[2023-03-07 13:40] VITALS: BMI 22.3
[2023-03-07] MEDS ORDERED: LOPERAMIDE HCL 2 MG CAPSULE PO PRN (14:06)
[2023-03-07] MEDS ORDERED: ONDANSETRON *ODT* 4 MG TABLET SL PRN (14:06)
[2023-03-07] MEDS ORDERED: METHOCARBAMOL 500 MG TABLET PO PRN (14:06)
[2023-03-07] MEDS ORDERED: methaDONE HCL 10 MG TABLET (FOR DETOX USE ONLY) PO ONE (14:06)
[2023-03-07] MEDS ORDERED: DICYCLOMINE HCL 10 MG CAPSULE PO PRN (14:06)
[2023-03-07] MEDS ORDERED: NALOXONE HCL 0.4 MG/ML VIAL IM PRN (14:06)
[2023-03-07] MEDS ORDERED: NALOXONE HCL (KLOXXADO) 8 MG SPRAY NS PRN (14:06)
[2023-03-07] MEDS ORDERED: NICOTINE POLACRILEX 4 MG GUM BUC PRN (14:06)
[2023-03-07] MEDS ORDERED: IBUPROFEN 400 MG TABLET (FP) PO PRN (14:06)
[2023-03-07] MEDS ORDERED: POLYETHYLENE GLYCOL (HEALTHYLAX) 3350 17 GM PACKET PO PRN (14:06)
[2023-03-07] MEDS ORDERED: MAG HYDROX/AL HYDROX/SIMETH 30 ML UNIT-DOSE CUP PO PRN (14:06)
[2023-03-07] MEDS ORDERED: hydrOXYzine PAMOATE 25 MG CAPSULE (FP) PO PRN (14:06)
[2023-03-07] MEDS ORDERED: BENZONATATE 200 MG CAPSULE PO PRN (14:06)
[2023-03-07] MEDS ORDERED: NICOTINE 10 MG CARTRIDGE (INHALER) IH PRN (14:06)
[2023-03-07] MEDS ORDERED: guaiFENesin 600 MG TABLET.ER (FP) PO PRN (14:06)
[2023-03-07] MEDS ORDERED: BENZOCAINE/MENTHOL (CHLORASEPTIC ) LOZENGE MM PRN (14:06)
[2023-03-07] MEDS ORDERED: ACETAMINOPHEN 325 MG TABLET (FP) PO PRN (14:06)
[2023-03-07] MEDS ORDERED: MAGNESIUM HYDROX 2400MG/30ML ORAL SUSPENSION 30 ML CUP PO PRN (14:06)
[2023-03-07] MEDS ORDERED: cloNIDine HCL 0.1 MG TABLET PO PRN (14:06)
[2023-03-07] MEDS ORDERED: BISMUTH SUBSALICYLATE 262 MG/15 ML BTL PO PRN (14:06)
[2023-03-07] MEDS ORDERED: methaDONE HCL 10 MG TABLET (FOR DETOX USE ONLY) ONE (14:38)
[2023-03-07] MEDS ORDERED: PRENATAL VITAMINS W/ FOLIC ACID TABLET (FP) PO ONE (14:38)
[2023-03-07] MEDS: PRENATAL VITAMINS W/ FOLIC ACID TABLET (FP) PO SCH (14:50)
[2023-03-07 15:35] LABS: HEMATOCRIT 34.3 % (35.4-49); HEMOGLOBIN 12.1 GM/dL (11.7-16.9); MCH 30.9 pg (25.7-33.7); MCHC 35.2 g/dl (32.0-35.9); MEAN CELL VOLUME 87.8 fl (80-96); MEAN PLT VOLUME 7.6 fl (7.5-11.1); PLATELET COUNT 221 10^3/uL (134-434); RBC 3.91 M/mm3 (4.00-5.60); WHITE BLOOD COUNT 5.2 K/mm3 (4.0-10.0)
[2023-03-07 15:53] LABS: POTASSIUM 4.1 mmol/L (3.5-5.1)
[2023-03-07 16:00] LABS: ALBUMIN 3.7 g/dl (3.4-5.0); CALCIUM 9.2 mg/dL (8.5-10.1)
[2023-03-07 16:01] LABS: BLOOD UREA NITROGEN 11.9 mg/dL (7-18)
[2023-03-07 16:03] LABS: CREATININE 0.9 mg/dL (0.55-1.3)
[2023-03-07 16:04] LABS: TOT PROT 6.7 g/dl (6.4-8.2)
[2023-03-07 16:05] LABS: BILIRUBIN,TOTAL 0.4 mg/dL (0.2-1)
[2023-03-07] MEDS ORDERED: MELATONIN 5 MG TABLETS PO SCH (22:00)
[2023-03-07] MEDS: THIAMINE HCL 100 MG TABLET (FP) PO SCH (23:06)
[2023-03-08] MEDS: PRENATAL VITAMINS W/ FOLIC ACID TABLET (FP) PO SCH (10:41)
[2023-03-08] MEDS: diazePAM 5 MG TABLET PO PRN (22:38)
[2023-03-08] MEDS: THIAMINE HCL 100 MG TABLET (FP) PO SCH (22:39)
[2023-03-09] MEDS ORDERED: methaDONE HCL 10 MG TABLET (FOR DETOX USE ONLY) PO ONE ×2 (10:00)
[2023-03-09] MEDS: PRENATAL VITAMINS W/ FOLIC ACID TABLET (FP) PO SCH (10:31)
[2023-03-09] MEDS: LACTULOSE 20 GM/30 ML UDC (FOR ORAL USE ONLY) PO SCH ×2 (14:11→23:04)
[2023-03-09] MEDS: diazePAM 5 MG TABLET PO PRN ×2 (16:02→19:14)
[2023-03-09] MEDS: IBUPROFEN 600 MG TABLET (FP) PO PRN (19:13)
[2023-03-09] MEDS: THIAMINE HCL 100 MG TABLET (FP) PO SCH (23:04)
[2023-03-10] MEDS: LACTULOSE 20 GM/30 ML UDC (FOR ORAL USE ONLY) PO SCH ×2 (06:08→13:52)
[2023-03-10] MEDS: diazePAM 5 MG TABLET PO PRN ×3 (06:10→15:45)
[2023-03-10 06:29] VITALS: RESP 16
[2023-03-10] MEDS: PRENATAL VITAMINS W/ FOLIC ACID TABLET (FP) PO SCH (10:13)
[2023-03-10 12:49] VITALS: BP 122/68; PULSE 88; TEMP 99.1
[2023-03-10] MEDS: IBUPROFEN 600 MG TABLET (FP) PO PRN (15:47)
[2023-03-11] MEDS ORDERED: methaDONE HCL 10 MG TABLET (FOR DETOX USE ONLY) PO ONE (10:00)
== END 2023-03-10 17:30 | disposition home or self-care (01) | DRG 773 ==
LOC: YASAS 13:13 → Y3N 14:31
PROVIDERS: ADMIT Allergy & Immunology; ATTEND Surgery
PROC: HZ2ZZZZ Detoxification Services for Substance Abuse Treatment (ICD-10-PCS; principal; 2023-03-07)
DX: F11.23 Opioid dependence with withdrawal (principal); F13.20 Sedative, hypnotic or anxiolytic dependence, uncomplicated; F14.20 Cocaine dependence, uncomplicated; F17.210 Nicotine dependence, cigarettes, uncomplicated; I10 Essential (primary) hypertension; R79.89 Other specified abnormal findings of blood chemistry
CPT/HCPCS: 36415; 80053; 82140; 85027; 86780; 93005; 93010; C9803-CS; U0003; U0005

== ENCOUNTER 2023-04-05 16:54 | Inpatient (IN) | payer BC ==
[2023-04-05 19:35] VITALS: BMI 22.0
[2023-04-05] MEDS ORDERED: ONDANSETRON *ODT* 4 MG TABLET SL PRN (20:46)
[2023-04-05] MEDS ORDERED: guaiFENesin 600 MG TABLET.ER (FP) PO PRN (20:46)
[2023-04-05] MEDS ORDERED: POLYETHYLENE GLYCOL (HEALTHYLAX) 3350 17 GM PACKET PO PRN (20:46)
[2023-04-05] MEDS ORDERED: NICOTINE POLACRILEX 2 MG GUM BUC PRN (20:46)
[2023-04-05] MEDS ORDERED: MAGNESIUM HYDROX 2400MG/30ML ORAL SUSPENSION 30 ML CUP PO PRN (20:46)
[2023-04-05] MEDS ORDERED: IBUPROFEN 400 MG TABLET (FP) PO PRN (20:46)
[2023-04-05] MEDS ORDERED: LOPERAMIDE HCL 2 MG CAPSULE PO PRN (20:46)
[2023-04-05] MEDS ORDERED: MAG HYDROX/AL HYDROX/SIMETH 30 ML UNIT-DOSE CUP PO PRN (20:46)
[2023-04-05] MEDS ORDERED: BENZONATATE 200 MG CAPSULE PO PRN (20:46)
[2023-04-05] MEDS ORDERED: ACETAMINOPHEN 325 MG TABLET (FP) PO PRN (20:46)
[2023-04-05] MEDS ORDERED: BISMUTH SUBSALICYLATE 524 MG/30 ML PO PRN (20:46)
[2023-04-05] MEDS ORDERED: BENZOCAINE/MENTHOL (CHLORASEPTIC ) LOZENGE MM PRN (20:46)
[2023-04-05] MEDS ORDERED: NALOXONE HCL (KLOXXADO) 8 MG SPRAY NS PRN (20:46)
[2023-04-05] MEDS ORDERED: P-EPHED 60MG/TRIPROLIDI 2.5MG TABLET PO PRN (20:46)
[2023-04-05] MEDS ORDERED: DICYCLOMINE HCL 10 MG CAPSULE PO PRN (20:46)
[2023-04-05] MEDS ORDERED: NALOXONE HCL 0.4 MG/ML VIAL IM PRN (20:46)
[2023-04-05] MEDS: diazePAM 5 MG TABLET PO PRN (22:51)
[2023-04-05] MEDS: hydrOXYzine PAMOATE 25 MG CAPSULE (FP) PO PRN (22:52)
[2023-04-05] MEDS: MELATONIN 5 MG TABLETS PO SCH (22:52)
[2023-04-05] MEDS: THIAMINE HCL 100 MG TABLET (FP) PO SCH (22:52)
[2023-04-06] MEDS ORDERED: methaDONE HCL 10 MG TABLET (FOR DETOX USE ONLY) PO ONE ×2 (00:54→10:39)
[2023-04-06] MEDS: diazePAM 5 MG TABLET PO PRN ×4 (09:10→22:04)
[2023-04-06] MEDS: PRENATAL VITAMINS W/ FOLIC ACID TABLET (FP) PO SCH (09:10)
[2023-04-06] MEDS: NICOTINE 21 MG/24 HOURS TOPICAL PATCH TD SCH (09:10)
[2023-04-06] MEDS: IBUPROFEN 600 MG TABLET (FP) PO PRN ×2 (09:14→22:05)
[2023-04-06 11:05] LABS: POTASSIUM 3.9 mmol/L (3.5-5.1)
[2023-04-06 11:08] LABS: HEMATOCRIT 38.3 % (35.4-49); MCH 30.9 pg (25.7-33.7); MCHC 33.9 g/dl (32.0-35.9); MEAN CELL VOLUME 91.3 fl (80-96); MEAN PLT VOLUME 8.4 fl (7.5-11.1); PLATELET COUNT 171 10^3/uL (134-434); RDW 13.1 % (11.9-15.9); WHITE BLOOD COUNT 8.9 K/mm3 (4.0-10.0)
[2023-04-06 11:15] LABS: ALBUMIN 3.5 g/dl (3.4-5.0); BILIRUBIN,TOTAL 0.9 mg/dL (0.2-1); BLOOD UREA NITROGEN 11.2 mg/dL (7-18); CALCIUM 8.7 mg/dL (8.5-10.1); CREATININE 0.9 mg/dL (0.55-1.3); TOT PROT 6.5 g/dl (6.4-8.2)
[2023-04-06] MEDS: cloNIDine HCL 0.1 MG TABLET PO PRN ×3 (13:21→22:03)
[2023-04-06] MEDS: MELATONIN 5 MG TABLETS PO SCH (22:03)
[2023-04-06] MEDS: THIAMINE HCL 100 MG TABLET (FP) PO SCH (22:03)
[2023-04-07] MEDS: diazePAM 5 MG TABLET PO PRN ×4 (09:33→22:00)
[2023-04-07] MEDS: IBUPROFEN 600 MG TABLET (FP) PO PRN ×2 (09:34→22:26)
[2023-04-07] MEDS: PRENATAL VITAMINS W/ FOLIC ACID TABLET (FP) PO SCH (09:34)
[2023-04-07] MEDS: NICOTINE 21 MG/24 HOURS TOPICAL PATCH TD SCH (09:35)
[2023-04-07] MEDS: hydrOXYzine PAMOATE 25 MG CAPSULE (FP) PO PRN (13:44)
[2023-04-07] MEDS: cloNIDine HCL 0.1 MG TABLET PO PRN (17:46)
[2023-04-07] MEDS: MELATONIN 5 MG TABLETS PO SCH (21:59)
[2023-04-07] MEDS: THIAMINE HCL 100 MG TABLET (FP) PO SCH (21:59)
[2023-04-08] MEDS: diazePAM 5 MG TABLET PO PRN ×5 (05:58→22:33)
[2023-04-08] MEDS ORDERED: methaDONE HCL 10 MG TABLET (FOR DETOX USE ONLY) PO ONE (10:00)
[2023-04-08] MEDS: NICOTINE 21 MG/24 HOURS TOPICAL PATCH TD SCH (10:08)
[2023-04-08] MEDS: PRENATAL VITAMINS W/ FOLIC ACID TABLET (FP) PO SCH (10:08)
[2023-04-08] MEDS: cloNIDine HCL 0.1 MG TABLET PO PRN ×3 (10:11→22:33)
[2023-04-08] MEDS: IBUPROFEN 600 MG TABLET (FP) PO PRN (18:32)
[2023-04-08] MEDS: hydrOXYzine PAMOATE 25 MG CAPSULE (FP) PO PRN (22:32)
[2023-04-08] MEDS: MELATONIN 5 MG TABLETS PO SCH (22:32)
[2023-04-08] MEDS: THIAMINE HCL 100 MG TABLET (FP) PO SCH (22:32)
[2023-04-09] MEDS: diazePAM 5 MG TABLET PO PRN (05:38)
[2023-04-09 09:07] VITALS: BP 137/84; PULSE 85; RESP 20; TEMP 97.7
[2023-04-09] MEDS: cloNIDine HCL 0.1 MG TABLET PO PRN (09:12)
[2023-04-09] MEDS: hydrOXYzine PAMOATE 25 MG CAPSULE (FP) PO PRN (09:12)
[2023-04-09] MEDS: NICOTINE 21 MG/24 HOURS TOPICAL PATCH TD SCH (10:49)
[2023-04-09] MEDS: PRENATAL VITAMINS W/ FOLIC ACID TABLET (FP) PO SCH (10:49)
== END 2023-04-09 09:55 | disposition home or self-care (01) | DRG 773 ==
LOC: YASAS 16:54 → Y3N 21:28
PROVIDERS: ADMIT Allergy & Immunology; ATTEND Surgery
PROC: HZ2ZZZZ Detoxification Services for Substance Abuse Treatment (ICD-10-PCS; principal; 2023-04-05)
DX: F11.23 Opioid dependence with withdrawal (principal); F13.230 Sedative, hypnotic or anxiolytic dependence with withdrawal, uncomplicated; F12.20 Cannabis dependence, uncomplicated; F17.210 Nicotine dependence, cigarettes, uncomplicated; F19.24 Other psychoactive substance dependence with psychoactive substance-induced mood disorder; I10 Essential (primary) hypertension
CPT/HCPCS: 36415; 80053; 85027; 86780; 87635